=== PATIENT | male | born 1990 | race Caucasian/White ===

== ENCOUNTER 2019-10-26 06:10 | Emergency (ER) | payer SELFPAY ==
[~2019-10-26] VITALS: Ht 180.3 cm; Wt 72.0 kg
--- NOTE | 2019-10-26 06:36 | NUR ---
THIS IS A 29 YO MALE COMING IN FOR FEVER AND COUGH X 2 DAYS, PATIENT STATES FEVER WAS 101 AT HOME. PATIENT TALKING IN PRESSURED SPEECH, ANSWERING QUESTIONS APPROPRATELY. PATIENT SPEAKING IN FULL SENTENCES, A&OX4, SPO2 AND BP MONITORING IN PLACE, PATIENT TACHYCARDIC AT 113. ALL OTHER VITALS WNL. CALL LIGHT IN REACH.
[2019-10-26] MEDS ORDERED: IBUPROFEN 600 MG TABLET ONE (06:53)
[2019-10-26] MEDS ORDERED: DEXAMETHASONE 4 MG TABLET ONE (06:53)
[2019-10-26] MEDS ORDERED: PROPARACAINE OPHTH 0.5%, 15ML EACHEYE ONE (07:00)
[2019-10-26] MEDS ORDERED: DEXAMETHASONE 4 MG TABLET PO ONE (07:00)
[2019-10-26] MEDS ORDERED: IBUPROFEN 200 MG TABLET PO ONE (07:00)
[2019-10-26] MEDS ORDERED: FLUORESCEIN OPHTHALMIC 1 MG STRIP EACHEYE ONE (07:00)
--- NOTE | 2019-10-26 07:03 | NUR ---
PATIENT MEDICATED PER EMAR, TOLERATED WELL
--- NOTE | 2019-10-26 07:12 | NUR ---
REPORT RECEIVED FROM SHANDA CRUZ. ASSUMED CARE
--- NOTE | 2019-10-26 07:13 | NUR ---
REPORT GIVEN TO SHANDA DONALDSON. PLAN OF CARE DISCUSSED
[2019-10-26 07:46] VITALS: BP 117/76
--- NOTE | 2019-10-26 07:59 | NUR ---
PT ELOPED WITHOUT DC TEACHING
== END 2019-10-26 08:00 | disposition left against medical advice (07) ==
LOC: ED 06:41
DX: J06.9 Acute upper respiratory infection, unspecified (principal); F12.10 Cannabis abuse, uncomplicated; F15.10 Other stimulant abuse, uncomplicated; F17.210 Nicotine dependence, cigarettes, uncomplicated; Z72.9 Problem related to lifestyle, unspecified
CPT/HCPCS: 71045; 87081; 87880; 99284; 99406